=== PATIENT | male | born 1985 | race Caucasian/White ===

== ENCOUNTER 2017-08-27 17:50 | Emergency (ER) | payer BC ==
[2017-08-27 18:03] VITALS: RESP 18; O2SAT 98
--- NOTE | 2017-08-27 18:12 | CPEKG ---
Heart Rate: 73 RR Interval: 822 P-R Interval: 140 QRSD Interval: 102 QT Interval: 396 QTC Interval: 437 P [place]: 64 QRS [place]: 66 T Wave [place]: 50 EKG Severity - NORMAL ECG - EKG Impression: SINUS RHYTHM Electronically Signed By: Victor M Pichardo 27-Aug-2017 19:00:09
--- NOTE | 2017-08-27 18:36 | EDPHY ---
H & P Smoking Status: Never smoked Time Seen by Provider: 08/27/17 18:19 HPI/ROS: CHIEF COMPLAINT: Chest pain HISTORY OF PRESENT ILLNESS: 32-year-old male presents to the emergency department by private vehicle complaining of chest pain that woke him up out of his sleep at 12:30 p.m. this morning. States that he took some ibuprofen and tried to go back to sleep. He was walking around today at work and did not notice that his symptoms got any worse but it has persisted and he came to the emergency department for evaluation. Denies feeling short of breath although he has a feeling that something is "stuck." Denies headache or neck pain. Denies any reported trauma. He is a nonsmoker. No known family history of early heart disease or myocardial infarction at early age. No cough or other respiratory complaints. No recent travel. No calf pain or swelling. REVIEW OF SYSTEMS: Constitutional: No fever, no chills. Eyes: No double or blurry vision. ENT: No sore throat. Respiratory: No cough, no shortness of breath. Cardiac: Chest pain. Gastrointestinal: No abdominal pain, vomiting or diarrhea. Genitourinary: No dysuria. Musculoskeletal: No neck or back pain. Skin: No rashes. Neurological: No headache. (Charlette Oconnell) Past Medical/Surgical History: Negative (Charlette Oconnell) Social History: (Charlette Oconnell) Physical Exam: General Appearance: Alert, no distress. 185/109, heart rate 89, 98% on room air. Eyes: Pupils equal and round. Extraocular motions are all intact. ENT: Mouth: Mucous membranes moist. Respiratory: No wheezing, rhonchi, or rales, lungs are clear to auscultation. Unable to reproduce pain with palpation to the anterior aspect of his chest. No palpable crepitus or other bony abnormality. Cardiovascular: Regular rate and rhythm. Gastrointestinal: Abdomen is soft and nontender, no masses, no rebound or guarding, bowel sounds normal. Neurological: Alert and oriented x 3, cranial nerves II through XII grossly intact Skin: Warm and dry, no rashes. Musculoskeletal: Nontender to palpate along the cervical, thoracic or lumbar spine. Neck is supple. Extremities: Full range of motion and no peripheral edema. Calves are nontender bilaterally. Psychiatric: Patient is oriented X 3, there is no agitation. (Charlette Oconnell) Constitutional: Initial Vital Signs Temperature (C) 37.4 C 08/27/17 18:01 Heart Rate 89 08/27/17 18:01 Respiratory Rate 18 08/27/17 18:01 Blood Pressure 185/109 H 08/27/17 18:01 O2 Sat (%) 98 08/27/17 18:01 O2 Delivery Mode Room Air Allergies/Adverse Reactions: No Known Allergies Allergy (Unverified 08/27/17 18:03) Medical Decision Making - Diagnostics EKG Interpretation: EKG: Complete interpretation has been separately recorded in the [facility] archive. Summary impression: Sinus rhythm, 73 (Victor M Pichardo) Imaging Results: Imaging Impressions Chest X-Ray 08/27/17 18:31 Impression: Nothing acute. ED Course/Re-evaluation: 32-year-old male presents to the emergency department with intermittent chest discomfort. Laboratory studies including troponin and D-dimer were negative. I do not think this patient has pulmonary embolism. He is not tachycardic. He is not hypotensive. No recent travel or surgery. He denies pleuritic chest pain. Chest x-rays unremarkable. EKG reveals normal sinus rhythm. The case was discussed with Dr. Pichardo, secondary supervising physician, who did not directly evaluate the patient but agrees with treatment and plan. I offered a Toradol or ibuprofen in the emergency department, however the patient declined. Patient is requesting to be discharged home. I encouraged close follow-up with primary care provider as well as merchandise associate. (Charlette Oconnell) Differential Diagnosis: Chest pain including but not limited to myocardial ischemia, pulmonary embolus, chest wall pain, pleural inflammation and pulmonary infectious causes. (Charlette Oconnell) - Data Points Laboratory Results: Laboratory Results 08/27/17 18:55 08/27/17 18:55 08/27/17 08/27/17 08/27/17 18:55 18:55 18:55 WBC 8.19 10^3/uL 10^3/uL (3.80-9.50) RBC 5.58 10^6/uL 10^6/uL (4.40-6.38) Hgb 16.4 g/dL g/dL (13.7-17.5) Hct 47.1 % % (40.0-51.0) MCV 84.4 fL fL (81.5-99.8) MCH 29.4 pg pg (27.9-34.1) MCHC 34.8 g/dL g/dL (32.4-36.7) RDW 12.1 % % (11.5-15.2) Plt Count 348 10^3/uL 10^3/uL (150-400) MPV 9.3 fL fL (8.7-11.7) Neut % (Auto) 60.2 % % (39.3-74.2) Lymph % (Auto) 31.7 % % (15.0-45.0) [place] % (Auto) 7.0 % % (4.5-13.0) Eos % (Auto) 0.6 % % (0.6-7.6) Baso % (Auto) 0.4 % % (0.3-1.7) Nucleat RBC Rel Count 0.0 % % (0.0-0.2) Absolute Neuts (auto) 4.93 10^3/uL 10^3/uL (1.70-6.50) Absolute Lymphs (auto) 2.60 10^3/uL 10^3/uL (1.00-3.00) Absolute Monos (auto) 0.57 10^3/uL 10^3/uL (0.30-0.80) Absolute Eos (auto) 0.05 10^3/uL 10^3/uL (0.03-0.40) Absolute Basos (auto) 0.03 10^3/uL 10^3/uL (0.02-0.10) Absolute Nucleated RBC 0.00 10^3/uL 10^3/uL (0-0.01) Immature Gran % 0.1 % % (0.0-1.1) Immature Gran # 0.01 10^3/uL 10^3/uL (0.00-0.10) D-Dimer < 0.27 ug/mLFEU ug/mLFEU (0.00-0.50) Sodium 140 mEq/L mEq/L (134-144) Potassium 3.8 mEq/L mEq/L (3.5-5.2) Chloride 103 mEq/L mEq/L (97-110) Carbon Dioxide 24 mEq/l mEq/l (22-31) Anion Gap 13 mEq/L mEq/L (8-16) BUN 20 mg/dL mg/dL (7-23) Creatinine 1.1 mg/dL mg/dL (0.7-1.3) Estimated GFR > 60 Glucose 83 mg/dL mg/dL (70-100) Calcium 10.5 mg/dL H mg/dL (8.5-10.4) Troponin I < 0.012 ng/mL ng/mL (0.000-0.034) Departure - Departure Disposition: Home, Routine, Self-Care Clinical Impression: Chest pain Qualifiers: Chest pain type: unspecified Qualified Code(s): R07.9 - Chest pain, unspecified Condition: Good Instructions: Chest Pain (ED) Additional Instructions: Your blood pressure was elevated in the emergency department. This should be recheck closely by your primary care provider. Return to the emergency department if you develop recurring chest pain, difficulty breathing, or if you feel worse in any way. Referrals: Austen Luz MD [Medical Doctor] - 2-3 days, call for appt. (Primary care provider electronic tech) Pipo Duff MD [Medical Doctor] - 1-2 days without fail ([facility] on-call)
[2017-08-27 19:02] LABS: % IMMATURE GRANULYOCYTES 0.1 % (0.0-1.1); ABSOLUTE IMMATURE GRANULOCYTES 0.01 10^3/uL (0.00-0.10); ADD DIFF? NO; ADD MORPH? NO; ADD SCAN? NO; ATYPICAL LYMPHOCYTE FLAG 0 (0-99); FRAGMENT RBC FLAG 0 (0-99); HEMATOCRIT 47.1 % (40.0-51.0); HEMOGLOBIN 16.4 g/dL (13.7-17.5); LEFT SHIFT FLG 0 (0-99); LIPEMIA HEMOLYSIS FLAG 90 (0-99); MEAN CELL HEMOGLOBIN 29.4 pg (27.9-34.1); MEAN CELL HEMOGLOBIN CONCENTR. 34.8 g/dL (32.4-36.7); MEAN CELL VOLUME 84.4 fL (81.5-99.8); MEAN PLATELET VOLUME 9.3 fL (8.7-11.7); PLATELET CLUMPS FLAG 10 (0-99); PLATELET COUNT 348 10^3/uL (150-400); RED BLOOD CELL COUNT 5.58 10^6/uL (4.40-6.38); RED CELL DISTRIBUTION WIDTH 12.1 % (11.5-15.2)
[2017-08-27 19:23] LABS: ANION GAP 13 mEq/L (8-16); CALCIUM 10.5 mg/dL (8.5-10.4); CARBON DIOXIDE 24 mEq/l (22-31); CHLORIDE 103 mEq/L (97-110); CREATININE 1.1 mg/dL (0.7-1.3); GLOMERULAR FILTRATION RATE > 60; GLUCOSE 83 mg/dL (70-100); POTASSIUM 3.8 mEq/L (3.5-5.2); SODIUM 140 mEq/L (134-144)
[2017-08-27 19:34] LABS: TROPONIN I < 0.012 ng/mL (0.000-0.034)
[2017-08-27 20:00] VITALS: BP 160/87; PULSE 65; TEMP 98.6
== END 2017-08-27 20:00 | disposition home or self-care (01) ==
DX: R07.9 Chest pain, unspecified (principal)